=== PATIENT | female | born 2000 | race Caucasian/White ===

== ENCOUNTER 2020-10-06 14:48 | Emergency (ER) | payer OTHER ==
[2020-10-06 16:02] LABS: RED BLOOD COUNT 4.88 M/UL (4.00-5.10); WHITE BLOOD COUNT 6.5 K/UL (4.5-11.0)
[2020-10-06 16:27] LABS: BUN/CREATININE RATIO 13 (0-10)
[2020-10-06] MEDS ORDERED: KEFLEX CAP 500500 MG PO (17:06)
[2020-10-06] MEDS ORDERED: ZOFRAN ODT 4 MG4 MG SL (17:11)
== END 2020-10-06 18:07 | disposition home or self-care (01) ==
LOC: ER1 14:48
PROVIDERS: Emergency Medicine
DX: O23.11 Infections of bladder in pregnancy, first trimester (principal); Z3A.00 Weeks of gestation of pregnancy not specified
CPT/HCPCS: 36415; 80053; 81001; 83690; 84703; 85025; 96374; 99284; J2405; J7030

== ENCOUNTER 2021-05-17 16:28 | Inpatient (IN) | payer OTHER ==
[~2021-05-17] VITALS: Ht 154.9 cm; Wt 62.6 kg
[~2021-05-17 16:28] MED LIST: KEFLEX CAP 500500 MG PO; ZOFRAN ODT 4 MG4 MG SL
[2021-05-17 17:34] LABS: HEMOGLOBIN 10.4 gm/dl (12.3-15.3); RED BLOOD COUNT 3.69 M/UL (4.00-5.10); WHITE BLOOD COUNT 7.8 K/UL (4.5-11.0)
[2021-05-17] MEDS ORDERED: ZOFRAN4 MG PO (18:06)
[2021-05-17] MEDS ORDERED: PRENATAL VITAM1 EAC3 PO (18:07)
[2021-05-18 04:04] LABS: HEMOGLOBIN 9.9 gm/dl (12.3-15.3); RED BLOOD COUNT 3.58 M/UL (4.00-5.10); WHITE BLOOD COUNT 8.2 K/UL (4.5-11.0)
[2021-05-18] MEDS ORDERED: COLACE100 MG PO (16:43)
[2021-05-18] MEDS ORDERED: FERREX 150 FOR1 EACH PO (16:43)
[2021-05-18] MEDS ORDERED: IBUPROFEN800 MG PO (16:43)
[2021-05-19 08:07] LABS: HEMOGLOBIN 9.9 gm/dl (12.3-15.3)
== END 2021-05-20 13:02 | disposition home or self-care (01) | DRG 807 ==
LOC: GENOP 16:28 → OB 17:26
PROVIDERS: ADMIT Obstetrics & Gynecology
PROC: 10E0XZZ Delivery of Products of Conception, External Approach (ICD-10-PCS; principal; 2021-05-20)
PROC: 4A1HXCZ Monitoring of Products of Conception, Cardiac Rate, External Approach (ICD-10-PCS; 2021-05-20)
PROC: 00HU33Z Insertion of Infusion Device into Spinal Canal, Percutaneous Approach (ICD-10-PCS; 2021-05-20)
PROC: 3E0R3BZ Introduction of Anesthetic Agent into Spinal Canal, Percutaneous Approach (ICD-10-PCS; 2021-05-20)
PROC: 10907ZC Drainage of Amniotic Fluid, Therapeutic from Products of Conception, Via Natural or Artificial Opening (ICD-10-PCS; 2021-05-20)
DX: O99.284 Endocrine, nutritional and metabolic diseases complicating childbirth (principal); Z37.0 Single live birth; O99.344 Other mental disorders complicating childbirth; F31.9 Bipolar disorder, unspecified; Z20.822 Contact with and (suspected) exposure to COVID-19; E28.2 Polycystic ovarian syndrome; Z3A.39 39 weeks gestation of pregnancy; Z82.49 Family history of ischemic heart disease and other diseases of the circulatory system; Z83.3 Family history of diabetes mellitus; Z81.8 Family history of other mental and behavioral disorders
CPT/HCPCS: 36415; 51702; 81001; 85014; 85018; 85025; 90471; 90707; 90715; J2405; J2590; J2795; J7120